=== PATIENT | male | born 1940 | race Caucasian/White ===

== ENCOUNTER → 2017-03-09 | Outpatient (CLI) | payer MEDICARE ==
--- NOTE | 2017-03-09 15:09 | XR ---
Lumbar spine HISTORY: Low back pain 3 views of the lumbar spine There is multilevel spondylosis. Lumbar vertebral bodies show preserved height, decreased bone minera lization. Loss of disc height present at the intervertebral levels, sclerosis present in the posterio r elements of the lower lumbar spine. There may be vacuum phenomenon at L3-4, L4-5. There is a calcif ication in the right paraspinal location measuring 13 mm which may be due to nephrolithiasis although the focus appears somewhat anterior on the lateral film. Stimulator is present in the right hemipelv is. There is a mild levoscoliosis centered at L2-3 which could be positional. Aorta appears ectatic. There is calcification present within the aorta. IMPRESSION: Degenerative disc disease and facet arthropathy. Aortic ectasia. Osteopenia, spinal curva ture. Possible right nephrolithiasis.
== END | disposition home or self-care (01) ==
LOC: RADXRMAIN 13:45
PROVIDERS: ATTEND Physician Assistant
DX: M51.36 Other intervertebral disc degeneration, lumbar region (principal); M46.96 Unspecified inflammatory spondylopathy, lumbar region; M85.88 Other specified disorders of bone density and structure, other site
CPT/HCPCS: 72100

== ENCOUNTER → 2019-08-23 | Outpatient (CLI) | payer MEDICARE ==
--- NOTE | 2019-08-23 14:53 | XR ---
EXAMINATION TYPE: XR Hip Bilateral and AP pelvis DATE OF EXAM: 08/23/2019 COMPARISON: NONE HISTORY: Pain TECHNIQUE: A single AP view of the pelvis is obtained. Two views of the bilateral hip are obtained. FINDINGS: There is a metallic device overlying the right iliac bone. There is a chronic appearing def ormities of the femoral head bilaterally with no acute fracture or dislocation. Calcifications in the pelvis likely vascular. Degenerative change lower lumbar spine. SI joints symmetric. IMPRESSION: 1. No definite acute fracture. Mild hypertrophic change of the acetabulum can be associated with femo ral acetabular impingement. 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 Correlate with MRI as clinically warranted.
== END | disposition home or self-care (01) ==
LOC: RADXRMAIN 14:18
PROVIDERS: ATTEND Family Medicine
DX: M25.852 Other specified joint disorders, left hip (principal); M25.851 Other specified joint disorders, right hip; M25.552 Pain in left hip
CPT/HCPCS: 73521

== ENCOUNTER 2019-08-30 21:34 | Inpatient (IN) | payer MEDICARE ==
[2019-08-30] MEDS ORDERED: SODIUM CHLORIDE 0.9% 1,000 ML IV STA (22:12)
--- NOTE | 2019-08-30 22:23 | ED ---
Altered Mental Status HPI - General Chief Complaint: Altered Mental Status Stated Complaint: Weakness, Confusion Time Seen by Provider: 08/30/19 21:46 Source: patient, family, RN notes reviewed, old records reviewed Mode of arrival: EMS Limitations: altered mental status - History of Present Illness Initial Comments: This is an 79-year-old male the ER for evaluation. Patient was essay for evaluation regards to altered mental status difficulty with urination and abdominal pain with abdominal pain. Denying fevers. Patient is had significant altered mental status starting last night patient's son who is at bedside called the patient this morning family was not acting appropriately calm again tonight and is having even worse mental status. He called EMS EMS states patient is ER patient's poor strain. He has history of prostate issues and difficulty with urination. Denying any fevers, patient's son states he seems to be acting a little bit more appropriately but still saying occasionally responses MD Complaint: altered mental status -: days(s) Severity: moderate Consistency of Symptoms: waxing and waning Context: history of similar presentation Associated Symptoms: weakness - Related Data Home Medications Medication Instructions Recorded Confirmed Aspirin 81 mg PO DAILY 01/16/16 08/30/19 Finasteride [Proscar] 5 mg PO HS 01/16/16 08/30/19 Lisinopril-Hctz 20-12.5 mg 1 tab PO DAILY 01/16/16 08/30/19 [Zestoretic 20-12.5] Lovastatin [Mevacor] 40 mg PO HS 01/16/16 08/30/19 Omeprazole 20 mg PO DAILY 01/16/16 08/30/19 amLODIPine BESYLATE [Norvasc] 5 mg PO DAILY 01/16/16 08/30/19 Albuterol Sulfate [Ventolin HFA] 2 puff INHALATION RT-QID PRN 08/30/19 08/30/19 Cholecalciferol [Vitamin D3 (25 1,000 unit PO DAILY 08/30/19 08/30/19 Mcg = 1000 Iu)] Tania-C 500mg 1 tab PO DAILY 08/30/19 08/30/19 Garlic 1 tab PO DAILY 08/30/19 08/30/19 Glucosamine Sulfate 500 mg PO DAILY 08/30/19 08/30/19 Multivit-Min/FA/Lycopen/Lutein 1 tab PO DAILY 08/30/19 08/30/19 [Centrum Silver Men Tablet] Vitamin E (Dl,Tocopheryl Acet) 400 unit PO DAILY 08/30/19 08/30/19 [Vitamin E] traZODone HCL 50 mg PO HS 08/30/19 08/30/19 Allergies Allergy/AdvReac Type Severity Reaction Status Date / Time No Known Allergies Allergy Verified 01/16/16 10:33 Review of Systems ROS Statement: Those systems with pertinent positive or pertinent negative responses have been documented in the HPI. ROS Other: All systems not noted in ROS Statement are negative. Past Medical History Past Medical History: GERD/Reflux, Hyperlipidemia, Hypertension, Prostate Disorder History of Any Multi-Drug Resistant Organisms: None Reported Past Surgical History: Orthopedic Surgery Additional Past Surgical History / Comment(s): MEDITRONIC IMPLANT -(FOR BLADDER NERVE), TURP, RIGHT SHOULDER, COLONOSCOPY Past Anesthesia/Blood Transfusion Reactions: No Reported Reaction Past Psychological History: No Psychological Hx Reported Smoking Status: Current every day smoker Past Alcohol Use History: None Reported Past Drug Use History: None Reported - Past Family History Mother Family Medical History: No Reported History General Exam Limitations: altered mental status General appearance: alert, in no apparent distress Head exam: Present: atraumatic, normocephalic, normal inspection Eye exam: Present: normal appearance, PERRL, EOMI. Absent: scleral icterus, conjunctival injection, periorbital swelling ENT exam: Present: normal exam, mucous membranes dry Neck exam: Present: normal inspection. Absent: tenderness, meningismus, lymphadenopathy Respiratory exam: Present: normal lung sounds bilaterally. Absent: respiratory distress, wheezes, rales, rhonchi, stridor Cardiovascular Exam: Present: normal rhythm, tachycardia, normal heart sounds. Absent: systolic murmur, diastolic murmur, rubs, gallop, clicks GI/Abdominal exam: Present: soft, normal bowel sounds. Absent: distended, tenderness, guarding, rebound, rigid Extremities exam: Present: normal inspection, full ROM, normal capillary refill. Absent: tenderness, pedal edema, joint swelling, calf tenderness Back exam: Present: normal inspection Neurological exam: Present: alert, oriented X3, CN II-XII intact Psychiatric exam: Present: normal affect, normal mood Skin exam: Present: warm, dry, intact, normal color. Absent: rash Course Vital Signs 08/30/19 21:37 Temperature 97.4 F L Pulse Rate 104 H Respiratory 20 Rate - Reevaluation(s) Reevaluation #1: 08/30/19 22:23 Medical record is reviewed Reevaluation #2: 08/30/19 22:23 Bladder scan done at that 08/30/19 23:04 Bladder scan was showing 90 mL - Consultations Consultation #1: Spoke with Dr. Steward who agrees for admission with nephrology consult Medical Decision Making - Medical Decision Making 79 male the ER for evaluation of altered mental status significant renal failure and uremia. Altered mental status can be related to uremia patient be admitted for IV antibiotics nephrology evaluation - Lab Data Result diagrams: 08/30/19 21:48 08/30/19 21:48 Lab Results 08/30/19 08/30/19 Range/Units 21:48 21:48 WBC 8.4 (3.8-10.6) k/uL RBC 4.32 (4.30-5.90) m/uL Hgb 14.6 (13.0-17.5) gm/dL Hct 44.6 (39.0-53.0) % MCV 103.1 H (80.0-100.0) fL MCH 33.7 (25.0-35.0) pg MCHC 32.7 (31.0-37.0) g/dL RDW 11.7 (11.5-15.5) % Plt Count 174 (150-450) k/uL Neutrophils % 85 % Lymphocytes % 8 % Monocytes % 4 % Eosinophils % 1 % Basophils % 0 % Neutrophils # 7.1 (1.3-7.7) k/uL Lymphocytes # 0.7 L (1.0-4.8) k/uL Monocytes # 0.4 (0-1.0) k/uL Eosinophils # 0.1 (0-0.7) k/uL Basophils # 0.0 (0-0.2) k/uL Sodium 145 (137-145) mmol/L Potassium 5.3 H (3.5-5.1) mmol/L Chloride 111 H (98-107) mmol/L Carbon Dioxide 18 L (22-30) mmol/L Anion Gap 16 mmol/L BUN 133 H* (9-20) mg/dL Creatinine 3.13 H (0.66-1.25) mg/dL Est GFR (CKD-EPI)AfAm 21 (>60 ml/min/1.73 sqM) Est GFR (CKD-EPI)NonAf 18 (>60 ml/min/1.73 sqM) Glucose 161 H (74-99) mg/dL Calcium 10.6 H (8.4-10.2) mg/dL Phosphorus 5.0 H (2.5-4.5) mg/dL Magnesium 2.4 H (1.6-2.3) mg/dL Total Bilirubin 0.7 (0.2-1.3) mg/dL AST 24 (17-59) U/L ALT 26 (21-72) U/L Alkaline Phosphatase 84 (38-126) U/L Total Protein 7.5 (6.3-8.2) g/dL Albumin 4.4 (3.5-5.0) g/dL Disposition Clinical Impression: Altered mental status, Uremia, UTI (urinary tract infection) Disposition: ADMITTED IP TO THIS HOSP Condition: Fair Is patient prescribed a controlled substance at d/c from ED?: No Referrals: Joce Steward MD [Primary Care Provider] - 1-2 days
[2019-08-30 22:34] LABS: Basophils % (A) 0 %; Eosinophils # (A) 0.1 k/uL (0-0.7); Eosinophils % (A) 1 %; HCT 44.6 % (39.0-53.0); HGB 14.6 gm/dL (13.0-17.5); Lymphocytes # (A) 0.7 k/uL (1.0-4.8); Lymphocytes % (A) 8 %; MCH 33.7 pg (25.0-35.0); MCHC 32.7 g/dL (31.0-37.0); MCV 103.1 fL (80.0-100.0); Mean Platelet Volume 8.1; Monocytes # (A) 0.4 k/uL (0-1.0); Monocytes % (A) 4 %; Neutrophils # (A) 7.1 k/uL (1.3-7.7); Neutrophils % (A) 85 %; Platelet Count 174 k/uL (150-450); RBC 4.32 m/uL (4.30-5.90); RDW 11.7 % (11.5-15.5); WBC 8.4 k/uL (3.8-10.6)
[2019-08-30 22:45] LABS: Albumin 4.4 g/dL (3.5-5.0); Calcium 10.6 mg/dL (8.4-10.2); Magnesium 2.4 mg/dL (1.6-2.3); Potassium 5.3 mmol/L (3.5-5.1); Total Bilirubin 0.7 mg/dL (0.2-1.3); Total Protein 7.5 g/dL (6.3-8.2)
[2019-08-30] MEDS ORDERED: DEXTROSE 50% SYRINGE 50 ML IVP STA (23:08)
[2019-08-30] MEDS ORDERED: SODIUM BICARB 8.4% 50 ML SYR (1 MEQ/ML) IV STA (23:08)
[2019-08-30] MEDS ORDERED: INSULIN REGULAR 100 UNIT/ML VIAL IV ONE (23:08)
[2019-08-30] MEDS ORDERED: SODIUM POLYSTYRENE SULFONATE 15 GM/60 ML BOTTLE PO STA (23:08)
[2019-08-30 23:20] LABS: Appearance,Urine Clear (Clear); Bacteria,Urine Rare /hpf; Bilirubin,Urine Negative (Negative); Blood,Urine Negative (Negative); Color,Urine Yellow; Glucose,Urine (UA) Negative (Negative); Hyaline Casts,Urine 6 /lpf (0-2); Ketones,Urine Trace (Negative); Leukocyte Esterase,Urine Small (Negative); Nitrite,Urine Negative (Negative); Protein,Urine Negative (Negative); RBC,Urine 1 /hpf (0-5); Specific Gravity,Urine 1.016 (1.001-1.035); Squamous Epithelial Cell,Urine <1 /hpf (0-4); Urobilinogen,Urine <2.0 mg/dL (<2.0)
[2019-08-30] MEDS: SODIUM CHLORIDE 0.9% 1,000 ML IV ONE (23:53)
[2019-08-31] MEDS: SODIUM CHLORIDE 0.9% 1,000 ML IV ONE (01:08)
[2019-08-31 09:07] LABS: Calcium 9.5 mg/dL (8.4-10.2); Potassium 4.8 mmol/L (3.5-5.1)
[2019-08-31] MEDS ORDERED: ALBUTEROL NEBULIZED 2.5 MG/3 ML INHALATION PRN (10:32)
--- NOTE | 2019-08-31 10:38 | P.NPCON ---
History of Present Illness - Reason for Consult acute renal failure - History of Present Illness reason for consultation: Acute kidney injury History of present illness: Patient is 79-year-old male seen in renal consultation for acute kidney injury. Patient's creatinine on admission was 3.13 and BUN of 133. It is improved to BUN of 108 and creatinine of 2.02 today. patient presented to the hospital due to generalized weakness and dizziness. Patient states he sustained a fall. He denies any vomiting or diarrhea. Oral intake has been good. He admits to good urine output. No hematuria or dysuria.There is no evidence of urinary retention. Denies regular use of nonsteroidals. Hemodynamically stable. Currently maintained on normal saline at 100 mL an hour. Sodium level is up to 149 today. Overall feels better today. he is afebrile. No cough. No vomiting or diarrhea. Patient states his mother was on hemodialysis in the past but is unsure of the etiology of her kidney disease. Vital signs are stable. General: The patient appeared well nourished and normally developed. HEENT: Head exam is unremarkable. Neck is without jugular venous distension. LUNGS: Lungs are clear to auscultation and percussion. Breath sounds decreased. HEART: Rate and Rhythm are regular. First and second heart sounds normal. No murmurs, rubs or gallops. ABDOMEN: Abdominal exam reveals normal bowel sounds. Non-tender and non- distended. No evidence of peritonitis. EXTREMITITES: No clubbing, cyanosis, or edema. Past Medical History Past Medical History: GERD/Reflux, Hyperlipidemia, Hypertension, Prostate Disorder History of Any Multi-Drug Resistant Organisms: None Reported Past Surgical History: Orthopedic Surgery Additional Past Surgical History / Comment(s): NEW DIABETES. NO MEDS RXED. MEDITRONIC IMPLANT -(FOR BLADDER NERVE), TURP, RIGHT SHOULDER, COLONOSCOPY Past Anesthesia/Blood Transfusion Reactions: No Reported Reaction Past Psychological History: No Psychological Hx Reported Smoking Status: Current every day smoker Past Alcohol Use History: None Reported Additional Past Alcohol Use History / Comment(s): STARTED SMOKING AT AGE 16/ SMOKES 3/4PPD. STOPPED DRINKING 2 WEEKS AGO Past Drug Use History: None Reported - Past Family History Mother Family Medical History: No Reported History Medications and Allergies Home Medications Medication Instructions Recorded Confirmed Type Finasteride [Proscar] 5 mg PO HS 01/16/16 08/30/19 History Lisinopril-Hctz 20-12.5 mg 1 tab PO DAILY 01/16/16 08/30/19 History [Zestoretic 20-12.5] Lovastatin [Mevacor] 40 mg PO HS 01/16/16 08/30/19 History RX: Aspirin 81 mg PO DAILY 01/16/16 08/30/19 History RX: Omeprazole 20 mg PO DAILY 01/16/16 08/30/19 History amLODIPine BESYLATE [Norvasc] 5 mg PO DAILY 01/16/16 08/30/19 History Albuterol Sulfate [Ventolin HFA] 2 puff INHALATION RT-QID PRN 08/30/19 08/30/19 History Cholecalciferol [Vitamin D3 (25 1,000 unit PO DAILY 08/30/19 08/30/19 History Mcg = 1000 Iu)] Tania-C 500mg 1 tab PO DAILY 08/30/19 08/30/19 History Multivit-Min/FA/Lycopen/Lutein 1 tab PO DAILY 08/30/19 08/30/19 History [Centrum Silver Men Tablet] RX: Garlic 1 tab PO DAILY 08/30/19 08/30/19 History RX: Glucosamine Sulfate 500 mg PO DAILY 08/30/19 08/30/19 History RX: traZODone HCL 50 mg PO HS 08/30/19 08/30/19 History Vitamin E (Dl,Tocopheryl Acet) 400 unit PO DAILY 08/30/19 08/30/19 History [Vitamin E] Allergies Allergy/AdvReac Type Severity Reaction Status Date / Time No Known Allergies Allergy Verified 01/16/16 10:33 Physical Exam Vitals: Vital Signs Temp Pulse Pulse Resp BP BP Pulse Ox 08/31/19 05:38 97.6 F 90 20 115/62 95 08/31/19 00:46 98.6 F 56 L 16 112/76 95 08/31/19 00:02 97.9 F 74 20 124/87 97 08/30/19 21:37 97.4 F L 104 H 20 Intake and Output 08/30/19 08/31/19 08/31/19 22:59 06:59 14:59 Output Total 1190 Balance -1190 Output: Urine 1190 Straight 90 Other: Voiding Method Urinal Weight 83.915 kg Results - Lab Results Most recent lab results Calcium 9.5 mg/dL (8.4-10.2) 08/31/19 08:20 Phosphorus 5.0 mg/dL (2.5-4.5) H 08/30/19 21:48 Magnesium 2.4 mg/dL (1.6-2.3) H 08/30/19 21:48 08/30/19 21:48 08/31/19 08:20 Assessment and Plan Plan: Assessment: 1. Acute kidney injury mostly prerenal improving with IV hydration.creatinine was 3.13 on admission and is 2.02 today. UA is quite benign. No evidence of urinary retention. 2. Hypernatremia secondary to lack of oral water intake. 3. Metabolic acidosis secondary to acute kidney injury. 4. Hypercalcemia secondary to volume contraction and further worsened with the use of hydrochlorothiazide and vitamin D supplementation. Improved. Plan: I will change IV fluids to half-normal saline to be run at 100 mL an hour. Monitor bicarb. Check renal ultrasound. Avoid nephrotoxins. Hold lisinopril and hydrochlorothiazide at this time. Repeat electrolytes in the morning. Thank you for the consultation. I will continue to follow the patient during his hospital stay.
[2019-08-31] MEDS ORDERED: ESTER C 500 MG PO SCH (10:45)
[2019-08-31] MEDS: ASPIRIN 81 MG PO SCH (12:24)
[2019-08-31] MEDS: PANTOPRAZOLE 40 MG TABLET PO SCH (12:24)
[2019-08-31] MEDS: MULTIVITAMINS, THERA 1 EACH TAB PO SCH (12:24)
[2019-08-31] MEDS: amLODIPine 5 MG TAB PO SCH (12:24)
[2019-08-31] MEDS: VITAMIN E (DL,TOCOPHERYL ACET) 400 UNIT CAP PO SCH (12:24)
--- NOTE | 2019-08-31 13:15 | US ---
EXAMINATION TYPE: US kidneys/renal and bladder DATE OF EXAM: 08/31/2019 COMPARISON: NONE CLINICAL HISTORY: eunice. EXAM MEASUREMENTS: Right Kidney: 10.5 x 5.8 x 5.3 cm Left Kidney: 10.9 x 5.7 x 5.1 cm Right Kidney: multiple cysts largest measuring 4.2 x 3.9 x 4.1cm, 2.) 2.0 x 1.5 x 2.0cm, probable sto ne measuring 1.1 x 0.5 x 1.3cm Left Kidney: Superior cyst measuring 6.6 x 6. 6 x 6.5cm Bladder: wnl The upper pole hypoechoic focus at the right kidney shows anechoic appearance as does the lower pole focus at the left kidney, imperceptible wall and increased through transmission. IMPRESSION: Simple cysts bilateral kidney, right-sided nephrolithiasis.
--- NOTE | 2019-08-31 13:26 | P.HPIM ---
History of Present Illness 79-year-old male was brought to the emergency room with complaints of altered mental status decreased urination. Family states patient has abstained from alcohol for the last 2 weeks as daily user of alcohol. Patient is also smoker. Has history of TURP and BPH. Patient states he has been nauseous for 3 days and not eating usual intake. 08/09/2019 noted BUN 24 Creatinine 1.17 GFR 58 Review of Systems Gastrointestinal: Reports nausea Genitourinary: Reports urinary retention Neurological: Reports change in mentation Past Medical History Past Medical History: GERD/Reflux, Hyperlipidemia, Hypertension, Prostate Disorder History of Any Multi-Drug Resistant Organisms: None Reported Past Surgical History: Orthopedic Surgery Additional Past Surgical History / Comment(s): NEW DIABETES. NO MEDS RXED. MEDITRONIC IMPLANT -(FOR BLADDER NERVE), TURP, RIGHT SHOULDER, COLONOSCOPY Past Anesthesia/Blood Transfusion Reactions: No Reported Reaction Past Psychological History: No Psychological Hx Reported Smoking Status: Current every day smoker Past Alcohol Use History: None Reported Additional Past Alcohol Use History / Comment(s): STARTED SMOKING AT AGE 16/ SMOKES 3/4PPD. STOPPED DRINKING 2 WEEKS AGO Past Drug Use History: None Reported - Past Family History Mother Family Medical History: No Reported History Medications and Allergies Home Medications Medication Instructions Recorded Confirmed Type Aspirin 81 mg PO DAILY 01/16/16 08/30/19 History Finasteride [Proscar] 5 mg PO HS 01/16/16 08/30/19 History Lisinopril-Hctz 20-12.5 mg 1 tab PO DAILY 01/16/16 08/30/19 History [Zestoretic 20-12.5] Lovastatin [Mevacor] 40 mg PO HS 01/16/16 08/30/19 History Omeprazole 20 mg PO DAILY 01/16/16 08/30/19 History amLODIPine BESYLATE [Norvasc] 5 mg PO DAILY 01/16/16 08/30/19 History Albuterol Sulfate [Ventolin HFA] 2 puff INHALATION RT-QID PRN 08/30/19 08/30/19 History Cholecalciferol [Vitamin D3 (25 1,000 unit PO DAILY 08/30/19 08/30/19 History Mcg = 1000 Iu)] Tania-C 500mg 1 tab PO DAILY 08/30/19 08/30/19 History Garlic 1 tab PO DAILY 08/30/19 08/30/19 History Glucosamine Sulfate 500 mg PO DAILY 08/30/19 08/30/19 History Multivit-Min/FA/Lycopen/Lutein 1 tab PO DAILY 08/30/19 08/30/19 History [Centrum Silver Men Tablet] Vitamin E (Dl,Tocopheryl Acet) 400 unit PO DAILY 08/30/19 08/30/19 History [Vitamin E] traZODone HCL 50 mg PO HS 08/30/19 08/30/19 History Allergies Allergy/AdvReac Type Severity Reaction Status Date / Time No Known Allergies Allergy Verified 01/16/16 10:33 Physical Exam Vitals: Vital Signs Temp Pulse Pulse Resp BP BP Pulse Ox 08/31/19 12:23 90 12 111/62 08/31/19 05:38 97.6 F 90 20 115/62 95 08/31/19 00:46 98.6 F 56 L 16 112/76 95 08/31/19 00:02 97.9 F 74 20 124/87 97 08/30/19 21:37 97.4 F L 104 H 20 Intake and Output 08/30/19 08/31/19 08/31/19 22:59 06:59 14:59 Output Total 1190 Balance -1190 Output: Urine 1190 Straight 90 Other: Voiding Method Urinal Weight 83.915 kg - Constitutional General appearance: mild distress - EENT Eyes: PERRLA Ears: bilateral: normal - Neck Neck: normal ROM - Respiratory Respiratory: bilateral: rhonchi - Cardiovascular Rhythm: regular - Gastrointestinal General gastrointestinal: soft - Integumentary Integumentary: normal - Neurologic Neurologic: CNII-XII intact - Musculoskeletal Musculoskeletal: generalized weakness - Psychiatric Psychiatric: A&O x's 3, appropriate affect, intact judgment & insight Results CBC & Chem 7: 08/30/19 21:48 08/31/19 08:20 Labs: Abnormal Lab Results - Last 24 Hours (Table) 08/30/19 08/30/19 08/30/19 Range/Units 21:48 21:48 23:10 MCV 103.1 H (80.0-100.0) fL Lymphocytes # 0.7 L (1.0-4.8) k/uL Sodium (137-145) mmol/L Potassium 5.3 H (3.5-5.1) mmol/L Chloride 111 H (98-107) mmol/L Carbon Dioxide 18 L (22-30) mmol/L BUN 133 H* (9-20) mg/dL Creatinine 3.13 H (0.66-1.25) mg/dL Glucose 161 H (74-99) mg/dL Calcium 10.6 H (8.4-10.2) mg/dL Phosphorus 5.0 H (2.5-4.5) mg/dL Magnesium 2.4 H (1.6-2.3) mg/dL Urine Ketones Trace H (Negative) Ur Leukocyte Esterase Small H (Negative) Urine Bacteria Rare H (None) /hpf Hyaline Casts 6 H (0-2) /lpf 08/31/19 Range/Units 08:20 MCV (80.0-100.0) fL Lymphocytes # (1.0-4.8) k/uL Sodium 149 H (137-145) mmol/L Potassium (3.5-5.1) mmol/L Chloride 117 H (98-107) mmol/L Carbon Dioxide 19 L (22-30) mmol/L BUN 108 H* (9-20) mg/dL Creatinine 2.02 H (0.66-1.25) mg/dL Glucose 116 H (74-99) mg/dL Calcium (8.4-10.2) mg/dL Phosphorus (2.5-4.5) mg/dL Magnesium (1.6-2.3) mg/dL Urine Ketones (Negative) Ur Leukocyte Esterase (Negative) Urine Bacteria (None) /hpf Hyaline Casts (0-2) /lpf Thrombosis Risk Factor Assmnt - Choose All That Apply Any of the Below Risk Factors Present?: No Other Risk Factors: No Each Risk Factor Represents 3 Points: Age 75 years or older Thrombosis Risk Factor Assessment Total Risk Factor Score: 3 Thrombosis Risk Factor Assessment Level: Very Low Risk Assessment and Plan Plan: Assessment Altered mental status secondary to azotemia Urinary tract infection Uremia History of GERD Hypertension Hyperlipidemia BPH with history of TURP Alcohol dependence recently stopped alcohol 2 weeks ago Nicotine addiction Hypernatremia Metabolic acidosis secondary to acute renal failure Plan Continue with nephrology consultation
[2019-08-31] MEDS ORDERED: LORazepam 2 MG/ML INJ IV PRN (16:41)
[2019-08-31] MEDS: FINASTERIDE 5 MG TAB PO SCH (20:26)
[2019-08-31] MEDS: ATORVASTATIN 10 MG TAB PO SCH (20:26)
[2019-08-31] MEDS: traZODone HCL 50 MG TAB PO SCH (20:26)
[2019-08-31] MEDS: SODIUM CHLORIDE 0.45% 1,000 ML IV SCH ×2 (20:32→20:35)
[2019-09-01] MEDS: PANTOPRAZOLE 40 MG TABLET PO SCH (07:28)
[2019-09-01] MEDS: SODIUM CHLORIDE 0.45% 1,000 ML IV SCH (07:28)
[2019-09-01] MEDS: ASPIRIN 81 MG PO SCH (07:28)
[2019-09-01] MEDS: amLODIPine 5 MG TAB PO SCH (07:28)
[2019-09-01] MEDS: MULTIVITAMINS, THERA 1 EACH TAB PO SCH (07:28)
[2019-09-01] MEDS: VITAMIN E (DL,TOCOPHERYL ACET) 400 UNIT CAP PO SCH (07:51)
[2019-09-01 09:30] LABS: Calcium 9.3 mg/dL (8.4-10.2); Magnesium 1.7 mg/dL (1.6-2.3); Potassium 4.4 mmol/L (3.5-5.1)
[2019-09-01] MEDS ORDERED: DEXTROSE 5% IN WATER 1,000 ML IV ONE (10:31)
--- NOTE | 2019-09-01 10:32 | P.PN ---
Subjective Patient is seen in follow-up for acute kidney injury. Renal function is improving. Creatinine 1.29 today. Oral intake is good. Urine output is good. No vomiting or diarrhea. Hemodynamically stable. Vital signs are stable. General: The patient appeared well nourished and normally developed. HEENT: Head exam is unremarkable. Neck is without jugular venous distension. LUNGS: Lungs are clear to auscultation and percussion. Breath sounds decreased. HEART: Rate and Rhythm are regular. First and second heart sounds normal. No murmurs, rubs or gallops. ABDOMEN: Abdominal exam reveals normal bowel sounds. Non-tender and non- distended. No evidence of peritonitis. EXTREMITITES: No clubbing, cyanosis, or edema. Objective - Vital Signs Vital signs: Vital Signs Temp 98.0 F 09/01/19 04:15 Pulse 82 09/01/19 04:15 Resp 20 09/01/19 04:15 BP 130/84 09/01/19 04:15 Pulse Ox 93 L 09/01/19 04:15 Intake & Output 08/31/19 09/01/19 09/01/19 18:59 06:59 18:59 Intake Total 550 Balance 550 Intake: Oral 550 Other: # Voids 2 5 # Bowel Movements 0 - Labs CBC & Chem 7: 08/30/19 21:48 09/01/19 07:26 Labs: Abnormal Lab Results - Last 24 Hours (Table) 09/01/19 Range/Units 07:26 Sodium 148 H (137-145) mmol/L Chloride 115 H (98-107) mmol/L BUN 62 H (9-20) mg/dL Creatinine 1.29 H (0.66-1.25) mg/dL Glucose 121 H (74-99) mg/dL Assessment and Plan Plan: Assessment: 1. Acute kidney injury mostly prerenal improving with IV hydration. Creatinine was 3.13 on admission and is down to 1.29 today. UA is quite benign. No evidence of urinary retention. No evidence of hydronephrosis noted on kidney ultrasound. 2. Hypernatremia secondary to lack of oral water intake. Slightly improved. 3. Metabolic acidosis secondary to acute kidney injury. Better. 4. Hypercalcemia secondary to volume contraction and further worsened with the use of hydrochlorothiazide and vitamin D supplementation. Improved. Plan: I will change IV fluids to D5W to be run at 75 mL an hour. Encourage oral intake, including free water. Avoid nephrotoxins. Hold lisinopril and hydrochlorothiazide at this time. Stable to be discharged home from nephrology standpoint. Follow up outpatient i n the next 2 weeks.
--- NOTE | 2019-09-01 16:02 | P.PN ---
Subjective Progress Note Date: 09/01/19 Principal diagnosis: Covering for Dr. Joce Steward 79-year-old male was brought to the emergency room with complaints of altered mental status decreased urination. Family states patient has abstained from alcohol for the last 2 weeks as daily user of alcohol. Patient is also smoker. Has history of TURP and BPH. Patient states he has been nauseous for 3 days and not eating usual intake. 08/09/2019 noted BUN 24 Creatinine 1.17 GFR 58 09/01/2019 Patient is sitting up in the chair in no acute distress with no acute overnight issues. Nephrology is following closely. Patient's mentation appears to have improved as he is responding appropriately to questions and commands. Patient is currently on IV antibiotics in the form of Rocephin for possible UTI and will continue at this time. Current patient denies any chest pain, shortness of breath, or palpitations. Patient has been afebrile. Patient denies any nausea or vomiting and is tolerating diet. Patient states that he is urinating with no difficulties with no blood noticed. Patient underwent an ultrasound of the kidneys yesterday and is showing simple cysts in bilateral kidneys along with right sided nephrolithiasis measuring 1.1 x 0.5 x 1.3 cm. Patient states he has no history of kidney stones. Patient will need to follow-up with urology in the outpatient setting upon discharge. Patient's BUN today is improved and is 62 and creatinine is 1.29 from previous 2.02. Magnesium is 1.7. Will continue to monitor closely. REVIEW OF SYSTEMS: ENT: No diminished vision or hearing. CARDIOVASCULAR: Mentioned earlier. RESPIRATORY: As mentioned earlier. GI: No nausea, vomiting or diarrhea. : No dysuria or retention. NERVOUS SYSTEM: Reports generalized weakness. HEMATOLOGY/ONCOLOGY: No history of anemia. ENDOCRINE: No history of diabetes or hypothyroidism. CONSTITUTIONAL: No reports of fatigue or fever DERMATOLOGY: Negative. PSYCHIATRY: Cooperative, non-suicidal Active Medications Albuterol Sulfate (Ventolin Nebulized) 2.5 mg INHALATION RT-QID PRN Amlodipine Besylate (Norvasc) 5 mg PO DAILY [facility] Aspirin (Aspirin) 81 mg PO DAILY [facility] Atorvastatin Calcium (Lipitor) 10 mg PO HS [facility] Finasteride (Proscar) 5 mg PO HS [facility] Ceftriaxone Sodium 1 gm/ (Sodium Chloride) 50 mls @ 100 mls/hr IVPB Q12HR [facility] Dextrose/Water (Dextrose 5%-Water Iv Soln) 1,000 mls @ 75 mls/hr IV .[id number] ONE Lorazepam (Ativan) 0.5 mg IV Q6HR PRN Multivitamins (Theragran) 1 each PO DAILY [facility] Pantoprazole Sodium (Protonix) 40 mg PO AC-BRKFST [facility] Trazodone HCl (Desyrel) 50 mg PO HS [facility] Vitamin E (Vitamin E) 400 unit PO DAILY [facility] Objective - Vital Signs Vital signs: Vital Signs Temp 98.0 F 09/01/19 04:15 Pulse 82 09/01/19 04:15 Resp 20 09/01/19 04:15 BP 130/84 09/01/19 04:15 Pulse Ox 93 L 09/01/19 04:15 Intake & Output 08/31/19 09/01/19 09/01/19 18:59 06:59 18:59 Intake Total 550 Balance 550 Intake: Oral 550 Other: # Voids 2 5 # Bowel Movements 0 - Exam Gen: This is a 79-year-old male sitting up in the chair in no acute distress. Total signs are stable. HEENT: Head is atraumatic, normocephalic. Pupils equal, round. Sclerae is anicteric. NECK: Supple. No JVD. No lymphadenopathy. No thyromegaly. LUNGS: Diminished breath sounds at the bases with a few scattered rhonchi noted. No intercostal retractions. HEART: S1, S2 are muffled ABDOMEN: Soft. Bowel sounds are present. No masses. No tenderness. EXTREMITIES: No pedal edema. No calf tenderness. NEUROLOGICAL: Patient is awake, alert and oriented x3. Cranial nerves 2 through 12 are grossly intact. - Labs CBC & Chem 7: 08/30/19 21:48 09/01/19 07:26 Labs: Abnormal Lab Results - Last 24 Hours (Table) 09/01/19 Range/Units 07:26 Sodium 148 H (137-145) mmol/L Chloride 115 H (98-107) mmol/L BUN 62 H (9-20) mg/dL Creatinine 1.29 H (0.66-1.25) mg/dL Glucose 121 H (74-99) mg/dL Assessment and Plan Assessment: Altered mental status secondary to azotemia Urinary tract infection Uremia History of GERD Hypertension Hyperlipidemia BPH with history of TURP Alcohol dependence recently stopped alcohol 2 weeks ago Nicotine addiction Hypernatremia Metabolic acidosis secondary to acute renal failure Recommendations and discussion: Recommend to continue current medications, management, and symptomatic treatment. Will continue to monitor closely. Nephrology is following. Patient will continue on IV fluids in the form of dextrose 5% in water at 75 ML per hour. Will repeat a.m. labs. Patient will continue on IV antibiotics in the form of Rocephin. PT/OT are following. Family feels that he is currently in an unsafe environment caring for himself and would benefit from some form of subacute rehab for possible ECF. Case management and social work are following and awaiting for a response from the son and which facility they would like to go to. Further recommendations to follow.
[2019-09-01] MEDS: FINASTERIDE 5 MG TAB PO SCH (22:41)
[2019-09-01] MEDS: ATORVASTATIN 10 MG TAB PO SCH (22:42)
[2019-09-01] MEDS: traZODone HCL 50 MG TAB PO SCH (22:42)
[2019-09-02 08:18] LABS: Calcium 9.3 mg/dL (8.4-10.2); Magnesium 1.3 mg/dL (1.6-2.3); Potassium 3.6 mmol/L (3.5-5.1)
[2019-09-02] MEDS: MULTIVITAMINS, THERA 1 EACH TAB PO SCH (08:53)
[2019-09-02] MEDS: VITAMIN E (DL,TOCOPHERYL ACET) 400 UNIT CAP PO SCH (08:53)
[2019-09-02] MEDS: PANTOPRAZOLE 40 MG TABLET PO SCH (08:53)
[2019-09-02] MEDS: ASPIRIN 81 MG PO SCH (08:54)
[2019-09-02] MEDS: amLODIPine 5 MG TAB PO SCH (08:54)
--- NOTE | 2019-09-02 09:41 | P.PN ---
Subjective Patient is seen in follow-up for acute kidney injury. Renal function continues to improve. Creatinine 0.99 today. Oral intake is good. Urine output is good. No vomiting or diarrhea. Hemodynamically stable. Vital signs are stable. General: The patient appeared well nourished and normally developed. HEENT: Head exam is unremarkable. Neck is without jugular venous distension. LUNGS: Lungs are clear to auscultation and percussion. Breath sounds decreased. HEART: Rate and Rhythm are regular. First and second heart sounds normal. No murmurs, rubs or gallops. ABDOMEN: Abdominal exam reveals normal bowel sounds. Non-tender and non-distende d. No evidence of peritonitis. EXTREMITITES: No clubbing, cyanosis, or edema. Objective - Vital Signs Vital signs: Vital Signs Temp 97.7 F 09/02/19 04:55 Pulse 85 09/02/19 04:55 Resp 20 09/02/19 04:55 BP 128/76 09/02/19 04:55 Pulse Ox 94 L 09/02/19 04:55 Intake & Output 09/01/19 09/02/19 09/02/19 18:59 06:59 18:59 Intake Total 1080 Balance 1080 Intake: Oral 1080 Other: Voiding Method Urinal # Voids 1 525 # Bowel Movements 2 - Labs CBC & Chem 7: 08/30/19 21:48 09/02/19 07:10 Labs: Abnormal Lab Results - Last 24 Hours (Table) 09/02/19 Range/Units 07:10 Sodium 146 H (137-145) mmol/L Chloride 115 H (98-107) mmol/L BUN 35 H (9-20) mg/dL Glucose 132 H (74-99) mg/dL Magnesium 1.3 L (1.6-2.3) mg/dL Assessment and Plan Plan: Assessment: 1. Acute kidney injury mostly prerenal improving with IV hydration. Creatinine was 3.13 on admission and is down to 0.99 today. UA is quite benign. No evidence of urinary retention. No evidence of hydronephrosis noted on kidney ultrasound. 2. Hypernatremia secondary to lack of oral water intake. Better. 3. Metabolic acidosis secondary to acute kidney injury. 4. Hypercalcemia secondary to volume contraction and further worsened with the use of hydrochlorothiazide and vitamin D supplementation. Improved. 5. Hypomagnesemia from poor oral intake. Plan: Remains off IV fluids. Encourage oral intake, including free water. Avoid nephrotoxins. Hold lisinopril and hydrochlorothiazide at this time. Replace magnesium. 3 g IV today. I will also add oral magnesium oxide. Stable to be discharged home from nephrology standpoint. Follow up outpatient in the next 2 weeks.
[2019-09-02] MEDS: MAGNESIUM SULFATE-D5W PMX 1 GM in DEXTROSE/WATER 1 100ML.BAG IVPB SCH ×3 (10:49→13:55)
--- NOTE | 2019-09-02 11:21 | P.PN ---
Subjective 79-year-old male was brought to the emergency room with complaints of altered mental status decreased urination. Family states patient has abstained from alcohol for the last 2 weeks as daily user of alcohol. Patient is also smoker. Has history of TURP and BPH. Patient states he has been nauseous for 3 days and not eating usual intake. 08/09/2019 noted BUN 24 Creatinine 1.17 GFR 58 09/01/2019 Patient is sitting up in the chair in no acute distress with no acute overnight issues. Nephrology is following closely. Patient's mentation appears to have improved as he is responding appropriately to questions and commands. Patient is currently on IV antibiotics in the form of Rocephin for possible UTI and will continue at this time. Current patient denies any chest pain, shortness of breath, or palpitations. Patient has been afebrile. Patient denies any nausea or vomiting and is tolerating diet. Patient states that he is urinating with no difficulties with no blood noticed. Patient underwent an ultrasound of the kidneys yesterday and is showing simple cysts in bilateral kidneys along with right sided nephrolithiasis measuring 1.1 x 0.5 x 1.3 cm. Patient states he has no history of kidney stones. Patient will need to follow-up with urology in the outpatient setting upon discharge. Patient's BUN today is improved and is 62 and creatinine is 1.29 from previous 2.02. Magnesium is 1.7. Will continue to monitor closely. 09/02/2019 Patient is clinically doing well there is no evidence of urinary tract infection and medics will be discontinued patient will be discharged to subacute rehabilitation on Wednesday. Kidney function improved patient is off IV fluids Objective - Vital Signs Vital signs: Vital Signs Temp 97.7 F 09/02/19 04:55 Pulse 85 09/02/19 04:55 Resp 18 09/02/19 08:00 BP 128/76 09/02/19 04:55 Pulse Ox 94 L 09/02/19 04:55 Intake & Output 09/01/19 09/02/19 09/02/19 18:59 06:59 18:59 Intake Total 1080 Balance 1080 Intake: Oral 1080 Other: Voiding Method Urinal # Voids 1 525 # Bowel Movements 2 - Exam PHYSICAL EXAMINATION: GENERAL: The patient is alert and oriented x2-3, not in any acute distress. Well developed, well nourished. HEENT: Pupils are round and equally reacting to light. EOMI. No scleral icterus. No conjunctival pallor. Normocephalic, atraumatic. No pharyngeal erythema. No thyromegaly. CARDIOVASCULAR: S1 and S2 present. No murmurs, rubs, or gallops. PULMONARY: Chest is clear to auscultation, no wheezing or crackles. ABDOMEN: Soft, nontender, nondistended, normoactive bowel sounds. No palpable organomegaly. MUSCULOSKELETAL: No joint swelling or deformity. EXTREMITIES: No cyanosis, clubbing, or pedal edema. NEUROLOGICAL: Gross neurological examination did not reveal any focal deficits. SKIN: No rashes. - Labs CBC & Chem 7: 08/30/19 21:48 09/02/19 07:10 Labs: Abnormal Lab Results - Last 24 Hours (Table) 09/02/19 Range/Units 07:10 Sodium 146 H (137-145) mmol/L Chloride 115 H (98-107) mmol/L BUN 35 H (9-20) mg/dL Glucose 132 H (74-99) mg/dL Magnesium 1.3 L (1.6-2.3) mg/dL Assessment and Plan Plan: -Metabolic encephalopathy secondary to dehydration improved -Rule out urinary tract infection and medics will be discontinued Have gastroesophageal reflux disease -Hypertension -Hyperlipidemia -History of alcohol dependence quit 2 weeks ago -Possibility of the cognitive impairment from chronic alcoholism -Nicotine abuse: Counseling was provided -The metabolic acidosis resolved secondary to renal failure. -Generalized deconditioning: Patient will be discharged to subacute rehabilitation Wednesday
[2019-09-02] MEDS: traZODone HCL 50 MG TAB PO SCH (21:30)
[2019-09-02] MEDS: FINASTERIDE 5 MG TAB PO SCH (21:31)
[2019-09-02] MEDS: ATORVASTATIN 10 MG TAB PO SCH (21:31)
--- NOTE | 2019-09-03 09:35 | P.PN ---
Subjective 79-year-old male was brought to the emergency room with complaints of altered mental status decreased urination. Family states patient has abstained from alcohol for the last 2 weeks as daily user of alcohol. Patient is also smoker. Has history of TURP and BPH. Patient states he has been nauseous for 3 days and not eating usual intake. 08/09/2019 noted BUN 24 Creatinine 1.17 GFR 58 09/01/2019 Patient is sitting up in the chair in no acute distress with no acute overnight issues. Nephrology is following closely. Patient's mentation appears to have improved as he is responding appropriately to questions and commands. Patient is currently on IV antibiotics in the form of Rocephin for possible UTI and will continue at this time. Current patient denies any chest pain, shortness of breath, or palpitations. Patient has been afebrile. Patient denies any nausea or vomiting and is tolerating diet. Patient states that he is urinating with no difficulties with no blood noticed. Patient underwent an ultrasound of the kidneys yesterday and is showing simple cysts in bilateral kidneys along with right sided nephrolithiasis measuring 1.1 x 0.5 x 1.3 cm. Patient states he has no history of kidney stones. Patient will need to follow-up with urology in the outpatient setting upon discharge. Patient's BUN today is improved and is 62 and creatinine is 1.29 from previous 2.02. Magnesium is 1.7. Will continue to monitor closely. 09/02/2019 Patient is clinically doing well there is no evidence of urinary tract infection and medics will be discontinued patient will be discharged to subacute rehabilitation on Wednesday. Kidney function improved patient is off IV fluids 09/03/2019 No overnight events patient's creatinine continued to improve IV fluids were discontinued. Discharged to subacute rehabilitation tomorrow Constitutional: Denied any fatigue denied any fever. Cardio vascular: denied any chest pain, palpitations Gastrointestinal denied any nausea vomiting Pulmonary: Denied any shortness of breath cough Neurologic denied any new focal deficits All inpatient medications were reviewed and appropriate changes in these medications as dictated in the interval history and assessment and plan. Objective - Vital Signs Vital signs: Vital Signs Temp 97.6 F 09/03/19 05:52 Pulse 72 09/03/19 05:52 Resp 16 09/03/19 05:52 BP 135/80 09/03/19 05:52 Pulse Ox 94 L 09/03/19 05:52 Intake & Output 09/02/19 09/03/19 09/03/19 18:59 06:59 18:59 Intake Total 1080 Output Total 1 Balance 1079 Intake: Oral 1080 Output: Stool 1 Other: Voiding Method Toilet Urinal # Voids 4 2 - Exam PHYSICAL EXAMINATION: GENERAL: The patient is alert and oriented x2-3, not in any acute distress. Well developed, well nourished. HEENT: Pupils are round and equally reacting to light. EOMI. No scleral icterus. No conjunctival pallor. Normocephalic, atraumatic. No pharyngeal erythema. No thyromegaly. CARDIOVASCULAR: S1 and S2 present. No murmurs, rubs, or gallops. PULMONARY: Chest is clear to auscultation, no wheezing or crackles. ABDOMEN: Soft, nontender, nondistended, normoactive bowel sounds. No palpable organomegaly. MUSCULOSKELETAL: No joint swelling or deformity. EXTREMITIES: No cyanosis, clubbing, or pedal edema. NEUROLOGICAL: Gross neurological examination did not reveal any focal deficits. SKIN: No rashes. - Labs CBC & Chem 7: 08/30/19 21:48 09/02/19 07:10 Assessment and Plan Plan: -Metabolic encephalopathy secondary to dehydration improved -Rule out urinary tract infection and medics will be discontinued Have gastroesophageal reflux disease -Hypertension -Hyperlipidemia -History of alcohol dependence quit 2 weeks ago -Possibility of the cognitive impairment from chronic alcoholism -Nicotine abuse: Counseling was provided -The metabolic acidosis resolved secondary to renal failure. -Generalized deconditioning: Patient will be discharged to subacute rehabilitation Wednesday
[2019-09-03 09:39] VITALS: BMI 24.4
--- NOTE | 2019-09-03 09:58 | P.PN ---
Subjective Patient is seen in follow-up for acute kidney injury. Renal function continues to improve. Creatinine 0.99 as of yesterday. Oral intake is good. Urine output is good. No vomiting or diarrhea. Hemodynamically stable. No changes overnight. Vital signs are stable. General: The patient appeared well nourished and normally developed. HEENT: Head exam is unremarkable. Neck is without jugular venous distension. LUNGS: Lungs are clear to auscultation and percussion. Breath sounds decreased. HEART: Rate and Rhythm are regular. First and second heart sounds normal. No murmurs, rubs or gallops. ABDOMEN: Abdominal exam reveals normal bowel sounds. Non-tender and non- distended. No evidence of peritonitis. EXTREMITITES: No clubbing, cyanosis, or edema. Objective - Vital Signs Vital signs: Vital Signs Temp 97.6 F 09/03/19 05:52 Pulse 72 09/03/19 05:52 Resp 16 09/03/19 05:52 BP 135/80 09/03/19 05:52 Pulse Ox 94 L 09/03/19 05:52 Intake & Output 09/02/19 09/03/19 09/03/19 18:59 06:59 18:59 Intake Total 1080 Output Total 1 Balance 1079 Weight 83.915 kg Intake: Oral 1080 Output: Stool 1 Other: Voiding Method Toilet Urinal # Voids 4 2 - Labs CBC & Chem 7: 08/30/19 21:48 09/02/19 07:10 Assessment and Plan Plan: Assessment: 1. Acute kidney injury mostly prerenal improving with IV hydration. Creatinine was 3.13 on admission and is down to 0.99 as of yesterday. UA is quite benign. No evidence of urinary retention. No evidence of hydronephrosis noted on kidney ultrasound. 2. Hypernatremia secondary to lack of oral water intake. Better. 3. Metabolic acidosis secondary to acute kidney injury. 4. Hypercalcemia secondary to volume contraction and further worsened with the use of hydrochlorothiazide and vitamin D supplementation. Improved. 5. Hypomagnesemia from poor oral intake. Status post replacement. Maintained on oral magnesium supplementation. Plan: Remains off IV fluids. Encourage oral intake, including free water. Avoid nephrotoxins. Hold lisinopril and hydrochlorothiazide at this time. Stable to be discharged home from nephrology standpoint. Follow up outpatient in the next 2 weeks.
[2019-09-03] MEDS: MAGNESIUM OXIDE 400 MG TAB PO SCH ×2 (09:59→20:59)
[2019-09-03] MEDS: PANTOPRAZOLE 40 MG TABLET PO SCH (09:59)
[2019-09-03] MEDS: VITAMIN E (DL,TOCOPHERYL ACET) 400 UNIT CAP PO SCH (09:59)
[2019-09-03] MEDS: amLODIPine 5 MG TAB PO SCH (09:59)
[2019-09-03] MEDS: ASPIRIN 81 MG PO SCH (09:59)
[2019-09-03] MEDS: MULTIVITAMINS, THERA 1 EACH TAB PO SCH (09:59)
[2019-09-03 11:01] LABS: African American GFR (CKD) >90 (>60 ml/min/1.73 sqM); Anion Gap 9 mmol/L; Blood Urea Nitrogen 22 mg/dL (9-20); Calcium 9.6 mg/dL (8.4-10.2); Carbon Dioxide 24 mmol/L (22-30); Chloride 111 mmol/L (98-107); Glucose 151 mg/dL (74-99); Magnesium 1.6 mg/dL (1.6-2.3); Non-African American GFR(CKD) 81 (>60 ml/min/1.73 sqM); Potassium 3.7 mmol/L (3.5-5.1); Sodium 144 mmol/L (137-145)
[2019-09-03] MEDS: FINASTERIDE 5 MG TAB PO SCH (20:59)
[2019-09-03] MEDS: traZODone HCL 50 MG TAB PO SCH (20:59)
[2019-09-03] MEDS: ATORVASTATIN 10 MG TAB PO SCH (20:59)
[2019-09-04] MEDS: ASPIRIN 81 MG PO SCH (07:30)
[2019-09-04] MEDS: amLODIPine 5 MG TAB PO SCH (07:30)
[2019-09-04] MEDS: MULTIVITAMINS, THERA 1 EACH TAB PO SCH (07:30)
[2019-09-04] MEDS: PANTOPRAZOLE 40 MG TABLET PO SCH (07:31)
[2019-09-04] MEDS: MAGNESIUM OXIDE 400 MG TAB PO SCH ×2 (07:31→21:12)
[2019-09-04] MEDS: VITAMIN E (DL,TOCOPHERYL ACET) 400 UNIT CAP PO SCH (07:37)
--- NOTE | 2019-09-04 11:16 | P.PN ---
Subjective Discussed case with son. Plan is for short-term rehab. Discussed with nurse and case management. Patient's complaining of left hip pain with ambulation Objective - Vital Signs Vital signs: Vital Signs Temp 97.7 F 09/04/19 05:37 Pulse 77 09/04/19 05:37 Resp 16 09/04/19 05:37 BP 139/83 09/04/19 05:37 Pulse Ox 97 09/04/19 05:37 Intake & Output 09/03/19 09/04/19 09/04/19 18:59 06:59 18:59 Intake Total 1080 Output Total 1 Balance 1079 Weight 83.915 kg Intake: Oral 1080 Output: Stool 1 Other: Voiding Method Toilet Toilet Urinal Urinal # Voids 3 4 # Bowel Movements 1 - Constitutional General appearance: Present: mild distress - EENT Eyes: Present: PERRLA - Respiratory Respiratory: bilateral: rhonchi - Cardiovascular Rhythm: regular Abnormal Heart Sounds: Present: systolic murmur - Gastrointestinal General gastrointestinal: Present: soft - Integumentary Integumentary: Present: normal - Neurologic Neurologic: Present: CNII-XII intact - Musculoskeletal Musculoskeletal Comment(s): Left hip pain with internal rotation - Labs CBC & Chem 7: 08/30/19 21:48 09/03/19 10:31 Assessment and Plan Plan: Assessment Altered mental status acute metabolic encephalopathy Renal failure acute dehydration resolved Weakness Left hip pain History of GERD Hypertension Hyperlipidemia BPH with history of TURP Alcoholism stopped alcohol 2 weeks ago Nicotine abuse Hypernatremia metabolic acidosis secondary to acute kidney failure resolved Plan Transferred to rehab for hip pain and weakness
--- NOTE | 2019-09-04 11:56 | XR ---
Left hip HISTORY: Trauma and pain 2 views of the left hip correlated to pelvis 08/23/2019 Bone mineralization, joint spaces and alignment are stable. IMPRESSION: No fracture or dislocation is evident.
--- NOTE | 2019-09-04 12:23 | P.PN ---
Subjective Patient is seen in follow-up for acute kidney injury. Renal function is back to baseline. Oral intake is good. Urine output is good. No vomiting or diarrhea. Hemodynamically stable. No changes overnight. Vital signs are stable. General: The patient appeared well nourished and normally developed. HEENT: Head exam is unremarkable. Neck is without jugular venous distension. LUNGS: Lungs are clear to auscultation and percussion. Breath sounds decreased. HEART: Rate and Rhythm are regular. First and second heart sounds normal. No murmurs, rubs or gallops. ABDOMEN: Abdominal exam reveals normal bowel sounds. Non-tender and non-distended. No evidence of peritonitis. EXTREMITITES: No clubbing, cyanosis, or edema. Objective - Vital Signs Vital signs: Vital Signs Temp 97.7 F 09/04/19 05:37 Pulse 77 09/04/19 05:37 Resp 16 09/04/19 05:37 BP 139/83 09/04/19 05:37 Pulse Ox 97 09/04/19 05:37 Intake & Output 09/03/19 09/04/19 09/04/19 18:59 06:59 18:59 Intake Total 1080 Output Total 1 Balance 1079 Weight 83.915 kg Intake: Oral 1080 Output: Stool 1 Other: Voiding Method Toilet Toilet Urinal Urinal # Voids 3 4 # Bowel Movements 1 - Labs CBC & Chem 7: 08/30/19 21:48 09/03/19 10:31 Assessment and Plan Plan: Assessment: 1. Acute kidney injury mostly prerenal improving with IV hydration. Creatinine was 3.13 on admission and is down to 0.87 today. UA is quite benign. No evidence of urinary retention. No evidence of hydronephrosis noted on kidney ultrasound. 2. Hypernatremia secondary to lack of oral water intake. Better. 3. Metabolic acidosis secondary to acute kidney injury. Better. 4. Hypercalcemia secondary to volume contraction and further worsened with the use of hydrochlorothiazide and vitamin D supplementation. Improved. 5. Hypomagnesemia from poor oral intake. Status post replacement. Maintained on oral magnesium supplementation. Better. Plan: Remains off IV fluids. Encourage oral intake, including free water. Avoid nephrotoxins. Hold lisinopril and hydrochlorothiazide at this time. Stable to be discharged home from nephrology standpoint. Follow up outpatient in the next 2 weeks.
[2019-09-04] MEDS: ACETAMINOPHEN TAB 325 MG TAB PO PRN (17:47)
[2019-09-04] MEDS: FINASTERIDE 5 MG TAB PO SCH (21:12)
[2019-09-04] MEDS: ATORVASTATIN 10 MG TAB PO SCH (21:12)
[2019-09-04] MEDS: traZODone HCL 50 MG TAB PO SCH (21:12)
[2019-09-05 06:37] VITALS: BP 137/89
[2019-09-05 06:38] VITALS: PULSE 77; RESP 17; TEMP 98
[2019-09-05] MEDS: PANTOPRAZOLE 40 MG TABLET PO SCH (08:22)
[2019-09-05] MEDS: ACETAMINOPHEN TAB 325 MG TAB PO PRN (08:22)
[2019-09-05] MEDS: MAGNESIUM OXIDE 400 MG TAB PO SCH (08:22)
[2019-09-05] MEDS: MULTIVITAMINS, THERA 1 EACH TAB PO SCH (08:22)
[2019-09-05] MEDS: amLODIPine 5 MG TAB PO SCH (08:22)
[2019-09-05] MEDS: ASPIRIN 81 MG PO SCH (08:22)
[2019-09-05] MEDS: VITAMIN E (DL,TOCOPHERYL ACET) 400 UNIT CAP PO SCH (08:24)
--- NOTE | 2019-09-05 10:17 | P.PN ---
Subjective Patient is seen in follow-up for acute kidney injury. Renal function is back to baseline. Oral intake is good. Urine output is good. No vomiting or diarrhea. Hemodynamically stable. No changes overnight. Awaits discharge to rehab. Vital signs are stable. General: The patient appeared well nourished and normally developed. HEENT: Head exam is unremarkable. Neck is without jugular venous distension. LUNGS: Lungs are clear to auscultation and percussion. Breath sounds decreased. HEART: Rate and Rhythm are regular. First and second heart sounds normal. No murmurs, rubs or gallops. ABDOMEN: Abdominal exam reveals normal bowel sounds. Non-tender and non- distended. No evidence of peritonitis. EXTREMITITES: No clubbing, cyanosis, or edema. Objective - Vital Signs Vital signs: Vital Signs Temp 98.0 F 09/05/19 06:38 Pulse 77 09/05/19 06:38 Resp 17 09/05/19 06:38 BP 137/89 09/05/19 06:38 Pulse Ox 98 09/05/19 06:38 Intake & Output 09/04/19 09/05/19 09/05/19 18:59 06:59 18:59 Intake Total 480 Balance 480 Intake: Oral 480 Other: Voiding Method Toilet Urinal # Voids 4 1 - Labs CBC & Chem 7: 08/30/19 21:48 09/03/19 10:31 Assessment and Plan Plan: Assessment: 1. Acute kidney injury mostly prerenal improving with IV hydration. Creatinine was 3.13 on admission and is down to 0.87 today. UA is quite benign. No evidence of urinary retention. No evidence of hydronephrosis noted on kidney ultrasound. 2. Hypernatremia secondary to lack of oral water intake. Better. 3. Metabolic acidosis secondary to acute kidney injury. Better. 4. Hypercalcemia secondary to volume contraction and further worsened with the use of hydrochlorothiazide and vitamin D supplementation. Improved. 5. Hypomagnesemia from poor oral intake. Status post replacement. Maintained on oral magnesium supplementation. Better. Plan: Remains off IV fluids. Encourage oral intake, including free water. Avoid nephrotoxins. Hold lisinopril and hydrochlorothiazide at this time. Stable to be discharged from nephrology standpoint. Follow up outpatient in the next 2 weeks.
--- NOTE | 2019-09-05 11:06 | P.DS ---
Providers Date of admission: 08/30/19 23:02 Expected date of discharge: 09/05/19 Attending physician: Joce Steward Consults: 08/30/19 23:01 Consult Physician Routine Consulting Provider: Marta Ayers Consult Reason/Comments: arf Do you want consulting provider notified?: Yes Primary care physician: Joce Steward Hospital Course: 79-year-old male was admitted to the emergency room with altered mental status acute renal failure. Patient has a history of alcohol abuse and stopped drinking 2 weeks ago. States he was having trouble with nausea for 3 days was not eating and drinking. Patient also is a smoker. Patient was evaluated by nephrology stabilized BUN/creatinine return to normal level Assessment Altered mental status uremia for acute renal failure secondary to dehydration Weakness History of GERD Hypertension Hyperlipidemia BPH with history of TURP Recent history of alcohol abuse Nicotine use Hypernatremia corrected Metabolic acidosis secondary to acute kidney injury resolved Plan Transferred for 2 extended care facility for rehab Patient Condition at Discharge: Fair Plan - Discharge Summary Discharge Rx Participant: No New Discharge Prescriptions: New Magnesium Oxide [Mag-Ox] 400 mg PO BID tab Acetaminophen Tab [Tylenol] 650 mg PO Q4HR PRN tab PRN Reason: Fever and/ or Mild Pain Continue Omeprazole 20 mg PO DAILY Aspirin 81 mg PO DAILY amLODIPine BESYLATE [Norvasc] 5 mg PO DAILY Lovastatin [Mevacor] 40 mg PO HS Finasteride [Proscar] 5 mg PO HS Albuterol Sulfate [Ventolin HFA] 2 puff INHALATION RT-QID PRN PRN Reason: Shortness Of Breath Vitamin E (Dl,Tocopheryl Acet) [Vitamin E] 400 unit PO DAILY Glucosamine Sulfate 500 mg PO DAILY Cholecalciferol [Vitamin D3 (25 Mcg = 1000 Iu)] 1,000 unit PO DAILY Multivit-Min/FA/Lycopen/Lutein [Centrum Silver Men Tablet] 1 tab PO DAILY traZODone HCL 50 mg PO HS Garlic 1 tab PO DAILY Tania-C 500mg 1 tab PO DAILY Discontinued Lisinopril-Hctz 20-12.5 mg [Zestoretic 20-12.5] 1 tab PO DAILY Discharge Medication List Aspirin 81 mg PO DAILY 01/16/16 [History] Finasteride [Proscar] 5 mg PO HS 01/16/16 [History] Lovastatin [Mevacor] 40 mg PO HS 01/16/16 [History] Omeprazole 20 mg PO DAILY 01/16/16 [History] amLODIPine BESYLATE [Norvasc] 5 mg PO DAILY 01/16/16 [History] Albuterol Sulfate [Ventolin HFA] 2 puff INHALATION RT-QID PRN 08/30/19 [History] Cholecalciferol [Vitamin D3 (25 Mcg = 1000 Iu)] 1,000 unit PO DAILY 08/30/19 [History] Tania-C 500mg 1 tab PO DAILY 08/30/19 [History] Garlic 1 tab PO DAILY 08/30/19 [History] Glucosamine Sulfate 500 mg PO DAILY 08/30/19 [History] Multivit-Min/FA/Lycopen/Lutein [Centrum Silver Men Tablet] 1 tab PO DAILY 08/30/19 [History] Vitamin E (Dl,Tocopheryl Acet) [Vitamin E] 400 unit PO DAILY 08/30/19 [History] traZODone HCL 50 mg PO HS 08/30/19 [History] Acetaminophen Tab [Tylenol] 650 mg PO Q4HR PRN tab 09/05/19 [Rx] Magnesium Oxide [Mag-Ox] 400 mg PO BID tab 09/05/19 [Rx] Follow up Appointment(s)/Referral(s): Joce Steward MD [Primary Care Provider] - 1-2 days
== END 2019-09-05 13:16 | DRG 682 ==
LOC: EC 21:34 → 4MS4W 23:02
PROVIDERS: ADMIT Family Medicine; ATTEND Family Medicine
DX: N17.9 Acute kidney failure, unspecified (principal); G93.41 Metabolic encephalopathy; E87.0 Hyperosmolality and hypernatremia; E87.2 Acidosis; N39.0 Urinary tract infection, site not specified; E11.9 Type 2 diabetes mellitus without complications; E78.5 Hyperlipidemia, unspecified; E83.42 Hypomagnesemia; E83.52 Hypercalcemia; E86.0 Dehydration; F17.210 Nicotine dependence, cigarettes, uncomplicated; I10 Essential (primary) hypertension; N28.1 Cyst of kidney, acquired; N40.0 Benign prostatic hyperplasia without lower urinary tract symptoms; W19.XXXA Unspecified fall, initial encounter; Z79.82 Long term (current) use of aspirin; Z79.899 Other long term (current) drug therapy; Z90.79 Acquired absence of other genital organ(s); K21.9 Gastro-esophageal reflux disease without esophagitis; F10.11 Alcohol abuse, in remission; E87.5 Hyperkalemia; E83.41 Hypermagnesemia
CPT/HCPCS: 36415; 51701; 73502; 76770; 80048; 80053; 81001; 83735; 84100; 85025; 96361; 96365; 96375; 99285